=== PATIENT | male | born 1975 | race Caucasian/White ===

== ENCOUNTER 2018-09-04 16:26 | Emergency (ER) | payer MEDICAID ==
[~2018-09-04] VITALS: Ht 185.4 cm; Wt 81.3 kg
[~2018-09-04 16:26] MED LIST: HYDR-3972 PO; NO HOME MEDS
[2018-09-04 16:35] VITALS: BP 153/93
== END 2018-09-04 18:00 | disposition home or self-care (01) ==
LOC: ER 16:27
DX: S41.032A Puncture wound without foreign body of left shoulder, initial encounter (principal); F12.90 Cannabis use, unspecified, uncomplicated; F15.90 Other stimulant use, unspecified, uncomplicated; Z88.0 Allergy status to penicillin; Z79.899 Other long term (current) drug therapy; Z59.0 Homelessness; Z56.0 Unemployment, unspecified; X58.XXXA Exposure to other specified factors, initial encounter; Y93.89 Activity, other specified; Y92.89 Other specified places as the place of occurrence of the external cause; Y99.8 Other external cause status
CPT/HCPCS: 99281

== ENCOUNTER 2019-02-22 11:02 | Emergency (ER) | payer MEDICAID ==
[~2019-02-22] VITALS: Ht 185.4 cm; Wt 79.0 kg
--- NOTE | 2019-02-22 11:19 | NUR ---
LUNGS: DIMINISHED THRUOUT, FREQUENT UNPROD COUGH, RR 24, 100% RA, LABORED BREATHING
[2019-02-22] MEDS ORDERED: ipratropium/albuterol 3ml nebule NEB ONE (11:30)
[2019-02-22] MEDS ORDERED: predniSONE 20 mg tablet PO ONE (11:30)
[2019-02-22] MEDS ORDERED: CefTRIAXone 1000mg IM Kit (w/lidocaine diluent) IM ONE (11:50)
[2019-02-22] MEDS ORDERED: CEPH250T PO (11:53)
[2019-02-22] MEDS ORDERED: PRED20TA PO (11:53)
[2019-02-22] MEDS ORDERED: GUAI120015 PO (11:53)
[2019-02-22] MEDS ORDERED: ALBU6.7H9 INH (11:53)
[2019-02-22] MEDS ORDERED: albuterol 2.5 MG/3 ML nebule NEB ONE (12:10)
[2019-02-22 12:11] VITALS: BP 133/88
--- NOTE | 2019-02-22 12:28 | NUR ---
LUNGS: DIMINISHED ON RIGHT, 02 SAT 95% RA, HR 101, RR 28
--- NOTE | 2019-02-22 12:34 | NUR ---
INFORMED KIM ZAVALA OF PT, RR 28, HR 101,DIMINISHED ON RIGHT
== END 2019-02-22 12:44 | disposition home or self-care (01) ==
LOC: ER 11:03
DX: J18.9 Pneumonia, unspecified organism (principal); J45.909 Unspecified asthma, uncomplicated; F12.90 Cannabis use, unspecified, uncomplicated; F15.90 Other stimulant use, unspecified, uncomplicated; F10.99 Alcohol use, unspecified with unspecified alcohol-induced disorder; Z98.890 Other specified postprocedural states; Z59.0 Homelessness; Z56.0 Unemployment, unspecified; Z86.69 Personal history of other diseases of the nervous system and sense organs; Z88.0 Allergy status to penicillin; Z79.899 Other long term (current) drug therapy; Y90.9 Presence of alcohol in blood, level not specified
CPT/HCPCS: 71046; 94640; 96372; 99284; J0696; J7512

== ENCOUNTER 2019-11-14 19:48 | Emergency (ER) | payer MEDICAID ==
[~2019-11-14] VITALS: Ht 185.4 cm; Wt 81.8 kg
[~2019-11-14 19:48] MED LIST changes: +ALBU6.7H9 INH; +GUAI120015 PO
[2019-11-14 20:25] LABS: BASOPHILS # (AUTO) 0.1 X10'3 (0-0.2); BASOPHILS % (AUTO) 0.8 % (0-1); EOSINOPHILS # (AUTO) 0.2 X10'3 (0-0.9); EOSINOPHILS % (AUTO) 2.7 % (0-6); HEMATOCRIT 40.4 % (42.0-52.0); HEMOGLOBIN 13.3 g/dl (14.0-17.9); LYMPHOCYTES # (AUTO) 2.3 X10'3 (1.1-4.8); LYMPHOCYTES % (AUTO) 31.5 % (21-51); MEAN CORPUSCULAR HEMOGLOBIN 27.4 PG (27.0-31.0); MEAN CORPUSCULAR HGB CONC 32.9 g/dL (33.0-36.5); MEAN CORPUSCULAR VOLUME 83.2 FL (78-98); MEAN PLATELET VOLUME 7.1 FL (7.4-10.4); MONOCYTES # (AUTO) 0.6 X10'3 (0-0.9); MONOCYTES % (AUTO) 8.5 % (2-12); NEUTROPHILS # (AUTO) 4.1 X10'3 (1.8-7.7); NEUTROPHILS % (AUTO) 56.5 % (42-75); PLATELET COUNT 372 X10'3 (140-440); RED BLOOD COUNT 4.86 X10'6 (4.70-6.10); RED CELL DISTRIBUTION WIDTH 15.4 % (11.5-14.5); WHITE BLOOD COUNT 7.2 X10'3 (4.5-11.0)
[2019-11-14 20:28] LABS: ALANINE AMINOTRANSFERASE 14 U/L (12-78); ALBUMIN/GLOBULIN RATIO 0.6 (1.1-1.5); ALKALINE PHOSPHATASE 88 IU/L (46-116); ANION GAP 9 (8-16); ASPARTATE AMINO TRANSFERASE 31 U/L (10-37); BILIRUBIN,TOTAL 0.5 MG/DL (0.1-1.0); BLOOD UREA NITROGEN 15 MG/DL (7-18); BUN/CREATININE RATIO 11.6 (5.4-32.0); CALCIUM 8.6 MG/DL (8.5-10.1); CHLORIDE 102 MMOL/L (99-107); CREATININE 1.29 MG/DL (0.60-1.10); ETHANOL < 0.010 GM/DL (0.0-0.010); GLUCOSE 148 MG/DL (70-104); LIPASE 189 U/L (73-393); POTASSIUM 3.1 MMOL/L (3.5-5.1); SODIUM 139 MMOL/L (135-145); TOTAL CARBON DIOXIDE 28.2 MMOL/L (24-32); TOTAL PROTEIN 8.2 G/DL (6.4-8.2); eGFR 60 ML/MIN
[2019-11-14 21:53] VITALS: BP 144/94
== END 2019-11-14 21:55 | disposition home or self-care (01) ==
LOC: ER 19:49
DX: R10.84 Generalized abdominal pain (principal); G89.29 Other chronic pain; N50.819 Testicular pain, unspecified; F17.200 Nicotine dependence, unspecified, uncomplicated; F12.90 Cannabis use, unspecified, uncomplicated; F15.90 Other stimulant use, unspecified, uncomplicated; Z72.89 Other problems related to lifestyle; Z59.0 Homelessness; Z56.0 Unemployment, unspecified; Z86.69 Personal history of other diseases of the nervous system and sense organs; Z88.0 Allergy status to penicillin; Z79.899 Other long term (current) drug therapy
CPT/HCPCS: 36415; 74176; 80053; 80320; 83690; 85025; 99284

== ENCOUNTER 2020-10-05 11:45 | Emergency (ER) | payer MEDICAID ==
[~2020-10-05] VITALS: Ht 185.4 cm; Wt 85.5 kg
[2020-10-05 11:52] VITALS: BP 149/18
[2020-10-05] MEDS: HYDROcodone/acetaminophen 10/325mg tab PO ONE ×2 (16:12→16:24)
[2020-10-05] MEDS ORDERED: HYDR-3965 PO (16:13)
== END 2020-10-05 16:24 | disposition home or self-care (01) ==
LOC: ER 11:46
DX: M25.571 Pain in right ankle and joints of right foot (principal); M79.89 Other specified soft tissue disorders; F17.200 Nicotine dependence, unspecified, uncomplicated; F12.90 Cannabis use, unspecified, uncomplicated; F15.90 Other stimulant use, unspecified, uncomplicated; Z56.0 Unemployment, unspecified; Z86.69 Personal history of other diseases of the nervous system and sense organs; Z72.89 Other problems related to lifestyle; Z59.0 Homelessness; Z98.890 Other specified postprocedural states; Z88.0 Allergy status to penicillin; Z79.899 Other long term (current) drug therapy
CPT/HCPCS: 73610; 99283

== ENCOUNTER 2020-11-07 19:35 | Emergency (ER) | payer MEDICAID ==
[~2020-11-07] VITALS: Ht 188 cm; Wt 79.0 kg
[2020-11-07 19:41] VITALS: BP 148/93
[2020-11-07] MEDS ORDERED: PRED5DRO23 LEFTEYE (20:25)
== END 2020-11-07 20:37 | disposition home or self-care (01) ==
LOC: ER 19:36
DX: H20.9 Unspecified iridocyclitis (principal); F12.90 Cannabis use, unspecified, uncomplicated; F15.90 Other stimulant use, unspecified, uncomplicated; Z86.69 Personal history of other diseases of the nervous system and sense organs; Z98.890 Other specified postprocedural states; Z72.89 Other problems related to lifestyle; Z56.0 Unemployment, unspecified; Z59.0 Homelessness; Z88.0 Allergy status to penicillin; Z79.899 Other long term (current) drug therapy
CPT/HCPCS: 99283

== ENCOUNTER 2021-11-26 09:06 | Emergency (ER) | payer MEDICAID ==
[~2021-11-26] VITALS: Ht 182.9 cm; Wt 85.9 kg
[~2021-11-26 09:06] MED LIST changes: +PRED5DRO23 LEFTEYE
[2021-11-26 09:24] VITALS: BP 144/92
== END 2021-11-26 10:00 | disposition home or self-care (01) ==
LOC: ER 09:07
DX: S90.511A Abrasion, right ankle, initial encounter (principal); F12.90 Cannabis use, unspecified, uncomplicated; Z59.00 Homelessness unspecified; Z56.0 Unemployment, unspecified; Z88.0 Allergy status to penicillin; X58.XXXA Exposure to other specified factors, initial encounter; Y93.89 Activity, other specified; Y92.89 Other specified places as the place of occurrence of the external cause; Y99.9 Unspecified external cause status
CPT/HCPCS: 99283; A6446; A6449

== ENCOUNTER 2024-04-07 17:50 | Emergency (ER) | payer MEDICAID ==
[~2024-04-07] VITALS: Ht 185.4 cm; Wt 84.6 kg
[~2024-04-07 17:50] MED LIST changes: +ALBU6.7H14 INH; -ALBU6.7H9 INH
[2024-04-07 18:16] VITALS: TEMP 97.8
[2024-04-07 21:10] VITALS: BP 148/89; PULSE 98; RESP 14; O2SAT 98
== END 2024-04-07 21:53 | disposition home or self-care (01) ==
LOC: ER 17:51
DX: I83.891 Varicose veins of right lower extremity with other complications (principal); M79.671 Pain in right foot; G89.29 Other chronic pain; F15.90 Other stimulant use, unspecified, uncomplicated; F12.90 Cannabis use, unspecified, uncomplicated; Z88.0 Allergy status to penicillin; Z98.890 Other specified postprocedural states
CPT/HCPCS: 73610; 93971; 99284

== ENCOUNTER 2024-05-20 02:54 | Emergency (ER) | payer MEDICAID ==
[~2024-05-20] VITALS: Ht 182.9 cm; Wt 90.9 kg
[2024-05-20] MEDS ORDERED: levetiracetam inj 1,500 MG in normal saline 100ml IV soln 100 ML IV ONE (03:25)
[2024-05-20 03:37] LABS: BASOPHILS % (AUTO) 0.4 % (0-1); EOSINOPHILS # (AUTO) 0.2 X10'3 (0-0.9); EOSINOPHILS % (AUTO) 2.5 % (0-6); HEMATOCRIT 37.6 % (42.0-52.0); HEMOGLOBIN 12.6 g/dl (14.0-17.9); LYMPHOCYTES # (AUTO) 1.5 X10'3 (1.1-4.8); LYMPHOCYTES % (AUTO) 23.1 % (21-51); MEAN CORPUSCULAR HEMOGLOBIN 29.2 PG (27.0-31.0); MEAN CORPUSCULAR HGB CONC 33.6 g/dL (33.0-36.5); MEAN CORPUSCULAR VOLUME 86.8 FL (78-98); MEAN PLATELET VOLUME 6.9 FL (7.4-10.4); MONOCYTES # (AUTO) 0.6 X10'3 (0-0.9); MONOCYTES % (AUTO) 10.2 % (2-12); NEUTROPHILS # (AUTO) 4.1 X10'3 (1.8-7.7); NEUTROPHILS % (AUTO) 63.8 % (42-75); PLATELET COUNT 279 X10'3 (140-440); RED BLOOD COUNT 4.33 X10'6 (4.70-6.10); RED CELL DISTRIBUTION WIDTH 14.8 % (11.5-14.5); WHITE BLOOD COUNT 6.4 X10'3 (4.5-11.0)
[2024-05-20] MEDS: levetiracetamNACL 1500mg/100mL 100 ML IV ONE (03:38)
[2024-05-20 03:58] LABS: ALBUMIN 3.3 G/DL (3.4-5.0); ANION GAP 6 (8-16); BLOOD UREA NITROGEN 16 MG/DL (7-18); BUN/CREATININE RATIO 12.3 (10.0-20.0); CALCIUM 8.4 MG/DL (8.5-10.1); CHLORIDE 109 MMOL/L (99-107); GLUCOSE 112 MG/DL (70-104); POTASSIUM 3.6 MMOL/L (3.5-5.1); SODIUM 143 MMOL/L (135-145); TOTAL CARBON DIOXIDE 28.1 MMOL/L (24-32); eCRCL 75 ML/MIN; eGFR 71 ML/MIN
[2024-05-20 04:10] VITALS: BP 147/89; PULSE 90; RESP 14; TEMP 98; O2SAT 98
== END 2024-05-20 04:16 ==
LOC: ER 02:55
DX: G40.909 Epilepsy, unspecified, not intractable, without status epilepticus (principal); F12.90 Cannabis use, unspecified, uncomplicated; F15.90 Other stimulant use, unspecified, uncomplicated; Z88.0 Allergy status to penicillin; Z98.890 Other specified postprocedural states
CPT/HCPCS: 36415; 80048; 84145; 85025; 96365; 99284; J1953